=== PATIENT | female | born 1970 | race Caucasian/White ===

== ENCOUNTER 2018-06-05 12:41 | Emergency (ER) | payer BC ==
--- NOTE | 2018-06-05 12:57 | ER Report ---
History and Physical Time Seen By MD: 12:57 HPI/ROS CHIEF COMPLAINT: Back pain HISTORY OF PRESENT ILLNESS: 47-year-old female patient presents to emergency room with complaint of back pain. Patient states the pain radiates down the the left upper leg. Patient states she has a tingling sensation but has increasing pain to palpation. Patient denies any numbness tingling below the knee. Patient states that she was seen at urgent care earlier this week. She is told by the provider there that they were concerned about a possible L5-S1 disc bulge. They did give her a muscle relaxer as well as some pain medication. Patient states she still has significant amounts of pain in that leg. She states that it is difficult to walk because of the discomfort. She denies having any weakness to the lower extremity. REVIEW OF SYSTEMS: Respiratory: No cough, no dyspnea. Cardiovascular: No chest pain, no palpitations. Gastrointestinal: No vomiting, no abdominal pain. Musculoskeletal: As noted above Allergies: Coded Allergies: corn (Verified Allergy, Severe, ANAPHYLAXIS, 06/05/18) gluten (Verified Allergy, Intermediate, HIVES, 06/05/18) Home Meds Active Scripts Prednisone (PREDNISONE) 20 Mg Tablet, 40 MG PO DAILY, #10 TAB Prov:ALLI LEVY [facility] 06/05/18 Oxycodone Hcl/Acetaminophen (PERCOCET 5-325 MG TABLET) 1 Each Tablet, 1 EACH PO Q4-6H PRN for PAIN, #20 TAB Prov:ALLI LEVY [facility] 06/05/18 Reported Medications Epinephrine HCl in 0.9 % NaCl (Epinephrine 0.16 mg/10 ml-Ns) 0.16 Mg/10 Ml (16 Mcg/Ml) Syringe, PRN for ANAPHYLAXIS 06/05/18 Tizanidine Hcl (TIZANIDINE HCL) 4 Mg Capsule, 4 MG PO BID PRN for PAIN, CAPSULE 06/05/18 Hydrocodone Bit/Acetaminophen (HYDROCODON-ACETAMINOPHEN 5-325) 1 Each Tablet, 1 EACH PO Q4H PRN for PAIN, TAB 06/05/18 Past Medical/Surgical History Patient has a past medical history of asthma, celiac disease, back pain, pelvic fracture, femur fracture, bruises easily. Patient states she has a significant surgical history. Reviewed Nurses Notes: Yes Constitutional Vital Sign - Last 24 Hours 06/05/18 06/05/18 06/05/18 06/05/18 12:50 12:56 13:00 13:11 Temp 97.5 Pulse 69 62 Resp 12 B/P (MAP) 156/84 (108) 156/84 142/95 (111) Pulse Ox 93 92 O2 Delivery Room Air 06/05/18 06/05/18 06/05/18 06/05/18 13:16 13:51 14:16 14:21 Pulse 62 66 65 B/P (MAP) 132/93 (106) Pulse Ox 89 92 91 06/05/18 06/05/18 06/05/18 06/05/18 14:51 15:21 15:26 15:55 Pulse 64 57 57 B/P (MAP) 147/82 (103) Pulse Ox 95 89 92 06/05/18 15:56 Pulse 58 Pulse Ox 88 Physical Exam General Appearance: The patient is alert, has no immediate need for airway protection and no current signs of toxicity. Respiratory: Chest is non tender, lungs are clear to auscultation. Cardiac: regular rate and rhythm Gastrointestinal: Abdomen is soft and non tender, no masses, bowel sounds normal. Musculoskeletal: Neck: Neck is supple and non tender. Back: Patient has no tenderness to the lumbar spine, however she does have tenderness to the paraspinal muscles adjacent to the spine on the left, patient also has tenderness to palpation through the SI joint as well as tenderness across the left upper leg. Extremities have full range of motion and are non tender. Skin: No rashes or lesions. DIFFERENTIAL DIAGNOSIS: After history and physical exam differential diagnosis was considered for bulging disc, sciatica, low back strain. Medical Decision Making Data Points Laboratory Hematology Test 06/05/18 13:26 Urine Color Yellow Urine Clarity Clear Urine pH 5.0 pH (4.8-9.5) Urine Specific [place] 1.013 Urine Protein Negative mg/dL (NEGATIVE) Urine Glucose (UA) Negative mg/dL (NEGATIVE) Urine Ketones Negative mg/dL (NEGATIVE) Urine Blood Negative (NEGATIVE) Urine Nitrite Negative (NEGATIVE) Urine Bilirubin Negative (NEGATIVE) Urine Urobilinogen Negative mg/dL (0.2-1.9) Urine Leukocyte Esterase Negative (NEGATIVE) Urine RBC <1 /HPF (0-2/HPF) Urine WBC <1 /HPF (0-5/HPF) Urine Squamous Epithelial Cells Few /LPF (</=FEW) Urine Bacteria Negative /HPF (NONE-FEW) Urine Mucus None /HPF (NONE-FEW) Chemistry Test 06/05/18 13:26 Urine Color Yellow Urine Clarity Clear Urine pH 5.0 pH (4.8-9.5) Urine Specific [place] 1.013 Urine Protein Negative mg/dL (NEGATIVE) Urine Glucose (UA) Negative mg/dL (NEGATIVE) Urine Ketones Negative mg/dL (NEGATIVE) Urine Blood Negative (NEGATIVE) Urine Nitrite Negative (NEGATIVE) Urine Bilirubin Negative (NEGATIVE) Urine Urobilinogen Negative mg/dL (0.2-1.9) Urine Leukocyte Esterase Negative (NEGATIVE) Urine RBC <1 /HPF (0-2/HPF) Urine WBC <1 /HPF (0-5/HPF) Urine Squamous Epithelial Cells Few /LPF (</=FEW) Urine Bacteria Negative /HPF (NONE-FEW) Urine Mucus None /HPF (NONE-FEW) Urinalysis Test 06/05/18 13:26 Urine Color Yellow Urine Clarity Clear Urine pH 5.0 pH (4.8-9.5) Urine Specific [place] 1.013 Urine Protein Negative mg/dL (NEGATIVE) Urine Glucose (UA) Negative mg/dL (NEGATIVE) Urine Ketones Negative mg/dL (NEGATIVE) Urine Blood Negative (NEGATIVE) Urine Nitrite Negative (NEGATIVE) Urine Bilirubin Negative (NEGATIVE) Urine Urobilinogen Negative mg/dL (0.2-1.9) Urine Leukocyte Esterase Negative (NEGATIVE) Urine RBC <1 /HPF (0-2/HPF) Urine WBC <1 /HPF (0-5/HPF) Urine Squamous Epithelial Cells Few /LPF (</=FEW) Urine Bacteria Negative /HPF (NONE-FEW) Urine Mucus None /HPF (NONE-FEW) EKG/Imaging Imaging L-SPINE >4 VIEWS Indication: BACK PAIN Comparison: None. Findings: There are 6 lumbar type vertebral bodies. For numbering purposes, the lowest vertebral type body will be labeled lumbarized S1. The vertebral bodies and posterior elements are intact. Disc spaces are normal. Alignment is maintained. IMPRESSION: Normal lumbar spine radiograph. 6 lumbar type vertebral bodies are incidentally noted. Report Dictated By: Rajesh Camacho at 06/05/2018 3:42 PM Report E-Signed By: Rajesh Camacho at 06/05/2018 3:43 PM Exam type: SACROILIAC JOINT 3 OR > VIEWS History: BACK PAIN Comparison: None. Findings: There is no acute fracture of the pelvis or sacrum. Small sclerotic foci over the right greater trochanter are noted likely benign. Sclerosis of the symphysis pubis suggesting osteitis pubis. SI joints are unremarkable. Surgical suture and a clip are noted in the pelvis. IMPRESSION: 1. No acute osseous abnormality of the SI joints or pelvis. 2. Osteitis pubis. 3. Surgical suture and a metallic clip are noted in the pelvis. Report Dictated By: Rinku Wells MD at 06/05/2018 2:02 PM Report E-Signed By: Rinku Wells MD at 06/05/2018 2:04 PM ED Course/Re-evaluation ED Course Patient was admitted to an exam room, history and physical were obtained. Differential diagnoses were considered. On examination lungs are clear, heart is regular, abdomen soft nontender. Patient does have some tenderness to the left side of the low back, no tenderness along the lumbar spine. Patient does have some tenderness along the SI joint. X-rays done of the lumbar spine as well as the SI joint. Patient was given a dose of Percocet for pain. On reevaluation patient states she did have some improvement in her discomfort. She states that she felt that the muscle spasms had completely resolved. I discussed with the patient and her family that we're having a hard time getting the x-rays read by radiology. When I did get the x-rays resulted I did discuss the findings with patient. The x-rays were negative. We will go ahead and discharge patient home at this time. With her having improvement in her comfort with the Percocet we will go ahead and have her continue that. We will also treat her with tian forrester. I believe that she likely has sciatica, however I do worry about a possible bulging disc. Patient and her family verbalized understanding and agreement with plan. Decision to Disposition Date: Jun 05, 2018 Decision to Disposition Time: 16:00 Depart Departure Latest Vital Signs Vital Signs Date Time Temp Pulse Resp B/P (MAP) Pulse Ox O2 Delivery O2 Flow Rate FiO2 06/05/18 15:56 58 88 06/05/18 15:55 147/82 (103) 06/05/18 12:56 97.5 12 Room Air Impression: Primary Impression: Back pain Condition: Improved Disposition: HOME OR SELF-CARE New Scripts Prednisone (PREDNISONE) 20 Mg Tablet 40 MG PO DAILY, #10 TAB Prov: MILDREDSENGAldo GAONA 06/05/18 Oxycodone Hcl/Acetaminophen (PERCOCET 5-325 MG TABLET) 1 Each Tablet 1 EACH PO Q4-6H PRN for PAIN, #20 TAB Prov: ALLI LEVY [facility] 06/05/18 Patient Instructions: Acute Low Back Pain (ED) Additional Instructions: Limit activity by pain. No heavy lifting. Alternate ice and heat. Get plenty of rest. Follow up with your primary care provider when you return home. Return to the ER if condition worsens. Take medication as directed. Problem Qualifiers Primary Impression: Back pain Back pain location: low back pain Chronicity: acute Back pain laterality: left Sciatica presence: with sciatica Sciatica laterality: sciatica of left side Qualified Codes: M54.42 - Lumbago with sciatica, left side SENG LEVYAldo GAONA Jun 05, 2018 12:57
[2018-06-05] MEDS ORDERED: TIZA4CAP3 PO (13:04)
[2018-06-05] MEDS ORDERED: HYDR-385 PO (13:04)
[2018-06-05] MEDS ORDERED: [UNRECOGNIZED DRUG - CODE] (13:04)
--- NOTE | 2018-06-05 14:08 | RADIOLOGY IMAGING REPORT ---
FACILITY: [facility] [place] PATIENT NAME: Sara Odell : 1970 MR: [id number] V: [id number] EXAM DATE: ORDERING PHYSICIAN: ALLI LEVY TECHNOLOGIST: Location: [facility] Patient: Sara Odell : 1970 Visit/Account:[id number] Date of Sevice: 06/05/2018 Exam type: SACROILIAC JOINT 3 OR > VIEWS History: BACK PAIN Comparison: None. Findings: There is no acute fracture of the pelvis or sacrum. Small sclerotic foci over the right greater troch anter are noted likely benign. Sclerosis of the symphysis pubis suggesting osteitis pubis. SI joints are unremarkable. Surgical suture and a clip are noted in the pelvis. IMPRESSION: 1. No acute osseous abnormality of the SI joints or pelvis. 2. Osteitis pubis. 3. Surgical suture and a metallic clip are noted in the pelvis. Report Dictated By: Rinku Wells MD at 06/05/2018 2:02 PM Report E-Signed By: Rinku Wells MD at 06/05/2018 2:04 PM WSN:[id number]
--- NOTE | 2018-06-05 15:47 | RADIOLOGY IMAGING REPORT ---
FACILITY: [facility] PATIENT NAME: Sara Odell : 1970 MR: [id number] V: [id number] EXAM DATE: ORDERING PHYSICIAN: ALLI LEVY TECHNOLOGIST: Location: [facility] Patient: Sara Odell : 1970 Visit/Account:[id number] Date of Sevice: 06/05/2018 L-SPINE >4 VIEWS Indication: BACK PAIN Comparison: None. Findings: There are 6 lumbar type vertebral bodies. For numbering purposes, the lowest vertebral type body will be labeled lumbarized S1. The vertebral bodies and posterior elements are intact. Disc spa callum are normal. Alignment is maintained. IMPRESSION: Normal lumbar spine radiograph. 6 lumbar type vertebral bodies are incidentally noted. Report Dictated By: Rajesh Camacho at 06/05/2018 3:42 PM Report E-Signed By: Rajesh Camacho at 06/05/2018 3:43 PM WSN:[id number]
[2018-06-05 15:55] VITALS: BP 147/82
[2018-06-05] MEDS ORDERED: OXYC-865 PO (15:57)
[2018-06-05] MEDS ORDERED: PRED20TA6 PO (15:57)
== END 2018-06-05 16:37 | disposition home or self-care (01) ==
LOC: ER 12:50
DX: M54.42 Lumbago with sciatica, left side (principal)
CPT/HCPCS: 72120; 72202; 81001; 99284